=== PATIENT | female | born 1980 | race Caucasian/White ===

== ENCOUNTER → 2019-02-21 09:48 | Day surgery (SDC) | payer BC ==
[~2019-02-21 09:48] MED LIST: Buffered Lidocaine 1% SYRIN* 1 ML/SYRINGE INTRADERM ONE; Dexamethasone IV* 4 MG/ML 1 ML (4 MG) IV SLOW PU ONE; Dexamethasone IV* 4 MG/ML 1 ML (4 MG) ONE; DiMENhydriNATE IV* 50 MG/ML VIAL IV PUSH PRN; Famotidine IV* 10 MG/ML 2 ML (20 mg) IV ONE; Famotidine IV* 10 MG/ML 2 ML (20 mg) ONE; Ketorolac INJ* 30 MG/ML 1 ML VIAL ONE; Lactated Ringers 1000 ML Bag* 1,000 ML IV SCH; Levalbuterol 0.63MG/3ML NEB* UNIT OF USE INH SCH; Lidocaine 1% MPF wEPI 200,000* 30 ML SDV ONE; Lidocaine 2% PF * 5 ML VIAL ONE; Midazolam* 1 MG/ML 5 ML VIAL (5 MG) ONE; Naloxone* 0.4 MG/ML 1 ML VIAL IV PRN; Ondansetron INJ* 2 MG/ML VIAL IV PRN; Ondansetron INJ* 2 MG/ML VIAL ONE; Propofol* 10 MG/ML 20 ML BTL ONE; Ropivacaine* 2 MG/ML 20 ML VIAL (0.2%) ONE; Scopolamine 1.5 mg* PATCH ONE; Scopolamine 1.5 mg* PATCH TRANSDERM PRN; ceFAZolin 2 GM in NS PREMIX(*) 2 GM/100 ML BAG IVPB ONE; fentaNYL* 50 MCG/ML 2 ML VIAL (100 MCG VIAL) IV PRN; fentaNYL* 50 MCG/ML 2 ML VIAL (100 MCG VIAL) ONE; fentaNYL* 50 MCG/ML 5 ML VIAL (250 MCG VIAL) ONE; oxyCODONE/Acetamin 5/325 MG* TAB PO PRN
[2019-02-21 15:35] VITALS: BP 119/93
--- NOTE | 2019-02-22 11:15 | OP ---
CC: PCP* OPERATIVE REPORT: DATE OF OPERATION: 02/21/19 - SDS DATE OF : 84 SURGEON: Domo Ramirez MD SAFETY COUNCIL DIRECTOR: None available. ANESTHESIOLOGIST: Regino Mcintosh MD ANESTHESIA: General. PRE-OP DIAGNOSES: 1. Medial meniscus tear. 2. Mild arthritis. POST-OP DIAGNOSES: 1. Medial femoral condyle, osteochondral lesion with loose body. 2. Medial root and lateral root tearing and fraying. 3. Synovitis. OPERATIVE PROCEDURE: Right knee arthroscopy with: 1. Synovectomy. 2. Removal of loose body x1 5 mm in size. 3. Chondroplasty of medial femoral condyle. 4. Partial medial, partial lateral meniscectomy. 5. Synovial biopsy. COMPLICATIONS: None. ESTIMATED BLOOD LOSS: Minimal. INDICATIONS: Ms. Yisel Montgomery is a 38-year-old female who presented with right knee injury that happened about a month ago. She has a catching and locking as well as pivoting pain. She has done physical therapy and failed. She has elected to proceed with surgical treatment. Risks and benefits were reviewed with the patient and include but are not limited to bleeding; infection ; damage to nerves, vessels, surrounding structures; wound nonhealing; persistent pain; need for further surgery; worsening arthritis; risk of DVT; risk of anesthesia; scarring; stiffness. She has elected to proceed. The patient also has a family history of rheumatoid arthritis with various complaints of joint pain thus a biopsy was also planned for during the procedure. DESCRIPTION OF PROCEDURE: The patient was greeted in the preoperative area by the attending surgeon. Correct extremity was marked, consent was confirmed. The patient was brought back to the operating suite, where she was placed in the supine position on the operating table. She then underwent general anesthesia with endotracheal intubation, after which was appropriately positioned on the bed with lateral post and an unsterile tourniquet. The right knee was then prepped and draped in usual sterile fashion beginning with chlorhexidine soap, scrub, and alcohol wipe, and a final prep with ChloraPrep. After appropriate surgical pause indicating site, side, procedure, and administration of antibiotics, the knee was intra-articularly injected with 1% lidocaine with epi. The lateral portal was made in an outside-in fashion. The scope was positioned into the joint. An anteromedial portal was then made using 18- gauge needle. Shaver was used to debride back the abundant synovitis anteriorly, medially and laterally. There was evidence of a loose body in the medial compartment about 5 mm and chondrosis, which had a good healing layer of cartilage. There were unstable flaps. The shaver was used to remove the loose body as well as do chondroplasty. Medial compartment was examined. The medial plateau had grade 0 changes. The medial meniscus had some fraying and tearing at the root with a small flap, but it was grossly intact. Lateral compartment was examined. There was fraying at the lateral root. The lateral femoral compartment had grade 0 to 1 changes. Lateral plateau had grade 1 changes. Patellofemoral joint had grade 0 changes. There was abundant synovitis and some of it was biopsied for possible rheumatologic diagnosis. The electrocautery device was used to maintain hemostasis. Final images were obtained. The wound was copiously irrigated with sterile saline. The knee was thoroughly lavaged and removed any loose debris. Portals were closed with 3-0 nylon. Sterile dressings were applied. A Cryo/Cuff was applied. She was awoken from anesthesia and returned to PACU in stable condition. POSTOPERATIVE PLAN: She will be weightbearing as tolerated. Range of motion as tolerated. Discharged on pain medications. DVT prophylaxis was considered but deferred due to no previous personal or family history. I will see the patient back in about 10 to 14 days. [id number]/[facility] #: [id number] JAMES
== END | disposition home or self-care (01) ==
LOC: OR 09:48
PROVIDERS: ATTEND Orthopaedic Surgery
DX: S83.241A Other tear of medial meniscus, current injury, right knee, initial encounter (principal); S83.281A Other tear of lateral meniscus, current injury, right knee, initial encounter; M65.861 Other synovitis and tenosynovitis, right lower leg; X58.XXXA Exposure to other specified factors, initial encounter; Y92.9 Unspecified place or not applicable; Z72.0 Tobacco use; F41.8 Other specified anxiety disorders
CPT/HCPCS: 81025; 88305; A9270-GY; J0690; J1100; J1885; J2001; J2250; J2405; J2704; J2795; J3010